=== PATIENT | male | born 1975 | race Hispanic/Latino ===

== ENCOUNTER 2017-11-05 09:36 | Emergency (ER) | payer OTHER ==
[2017-11-05 10:05] VITALS: RESP 18
[2017-11-05] MEDS ORDERED: Sodium Chloride 0.9% 1,000 ML IV STA (10:16)
--- NOTE | 2017-11-05 11:01 | ED PDOC ---
HPI: General Adult Time Seen by Provider: 11/05/17 09:47 Chief Complaint (Nursing): Chest Pain Chief Complaint (Provider): dizziness, joint pains History Per: Patient History/Exam Limitations: no limitations Onset/Duration Of Symptoms: Days (2 weeks), Gradual Current Symptoms Are (Timing): Still Present Severity: Severe Recently: Hospitalized Additional Complaint(s): 42yo male history significant for reported tropical disease he developed on return from [place] (one week trip) approximately 2 weeks ago, was hospitalized at [facility] [facility] for one week due to thrombocytopenia, states tests for Dengue and other tropical diseases were negative but hes awaiting chikungunya serologies still, notes ongoing joint, back and muscle pains, this morning on his way to work became dizzy with pain in back and legs and couldnt make it to work, EMS summoned and brought to ED. States has had frequent low grade fevers, malaise, denies melena, vomiting or hematemesis, syncope, headache or new bruising. Admits to 20-30lb weight loss over last few weeks, loose stools and fatigue. PMD [facility] Past Medical History Reviewed: Historical Data, Nursing Documentation, Vital Signs Vital Signs: Last Vital Signs Temp 98.3 F 11/05/17 12:39 Pulse 76 11/05/17 12:39 Resp 18 11/05/17 12:39 BP 138/81 11/05/17 12:39 Pulse Ox 98 11/05/17 13:55 - Medical History PMH: No Chronic Diseases, Sleep Apnea - Surgical History Surgical History: Tonsillectomy - Living Arrangements Living Arrangements: Other - Social History Current smoker - smoking cessation education provided: No - Home Medications Home Medications: Ambulatory Orders Medication Instructions Recorded traMADol [Ultram] 50 mg PO TID PRN #12 tab 11/05/17 - Allergies Allergies/Adverse Reactions: Allergies Allergy/AdvReac Type Severity Reaction Status Date / Time No Known Allergies Allergy Verified 11/05/17 09:47 Review of Systems Constitutional: Positive for: Fever, Chills, Sweats, Weakness, Malaise, Weight loss Eyes: Negative for: Eyelid Inflammation ENT: Negative for: Throat Pain Cardiovascular: Positive for: Palpitations. Negative for: Chest Pain Respiratory: Positive for: Shortness of Breath (exertional) Gastrointestinal: Positive for: Diarrhea. Negative for: Abdominal Pain Genitourinary Male: Negative for: Dysuria, Hematuria Musculoskeletal: Positive for: Shoulder Pain, Arm Pain, Back Pain, Hand Pain, Leg Pain, Foot Pain, Other (+arthralgias and myalgias). Negative for: Neck Pain Skin: Positive for: Bruising. Negative for: Rash, Lesions Neurological: Positive for: Weakness, Dizziness. Negative for: Seizures, Altered Mental Status Psych: Negative for: Depression Physical Exam - Reviewed Nursing Documentation Reviewed: Yes Vital Signs Reviewed: Yes - Physical Exam Appears: Positive for: Well, Non-toxic, No Acute Distress Head Exam: Positive for: ATRAUMATIC, NORMAL INSPECTION, NORMOCEPHALIC Skin: Positive for: Warm (+scattered ecchymosis old IV sites), Diaphoresis, Pallor. Negative for: Normal Color, Jaundice, Mottled Eye Exam: Positive for: EOMI, Normal appearance, PERRL ENT: Positive for: Normal ENT Inspection Neck: Positive for: Normal, Painless ROM Cardiovascular/Chest: Positive for: Regular Rate, Rhythm Respiratory: Positive for: CNT, Normal Breath Sounds Gastrointestinal/Abdominal: Positive for: Normal Exam, Soft. Negative for: Tenderness Back: Positive for: Normal Inspection Extremity: Positive for: Normal ROM. Negative for: Deformity, Swelling Neurologic/Psych: Positive for: Alert, landscape laborer II-XII (intact), Oriented. Negative for: Motor/Sensory Deficits - Laboratory Results Result Diagrams: 11/05/17 11:23 11/05/17 11:23 - ECG O2 Sat by Pulse Oximetry: 98 Medical Decision Making Medical Decision Making: workup for progression of tropical illness initiated labs reviewed, reveal moderate anemia hgb 9.5 with thrombocytopenia plts 31 mildly elevated lactate chem otherwise clinically unremarkable d/w Dr Harrington hematology who saw patient at [facility], hes ok with Hgb and platelet values as they are improving. He was seen by ID there also per Dr Harrington and cleared for DC. No Abx. Recommends sending LDH and Retic count, will see as an outpatient this week. Orthostatics performed without evidence orthostasis s/p IVF 1L NS. Improved clinically, feels better he states and would like to be discharged. Given option for further obs in hospital but he declined. DC to mandatory followup Dr Harrington 2-3 days and indications for return ER discussed. Add tramadol for pain, d/w clinical pharmacist safe in thrombocytopenia Disposition - Clinical Impression Clinical Impression: Viral syndrome, Myalgia, Anemia, Thrombocytopenia - Patient ED Disposition Is Patient to be Admitted: No Counseled Patient/Family Regarding: Studies Performed, Diagnosis, Need For Followup, Rx Given - Disposition Referrals: Arian Harrington MD [Staff Provider] - Disposition: Routine/Home Disposition Time: 13:30 Condition: STABLE Additional Instructions: Avoid trauma, falls or injury. No athletics, climbing or heavy exertion until cleared by research and development chemist. Platelets today were 31, Hemoglobin 9.5 Use tylenol for pain, tramadol for breakthrough pain, avoid NSAID (motrin/advil/ alleve) use. Drink plenty of fluids. Return to ER for any worse symptoms, bleeding, weakness, persistent fever, or any concern. Prescriptions: traMADol [Ultram] 50 mg PO TID PRN #12 tab PRN Reason: Pain, Moderate (4-7) Instructions: Muscle and Bone Pain (DC), Bleeding Precautions Forms: [facility] ([place])
[2017-11-05 11:03] LABS: VENOUS BLOOD GAS BASE EXCESS -1.3 mmol/L (0.0-2.0); VENOUS BLOOD GAS PCO2 34 mmHg (40-60); VENOUS BLOOD GAS PO2 32 mm/Hg (30-55); VENOUS BLOOD PH 7.43 (7.32-7.43)
[2017-11-05 11:33] LABS: INR 1.1; PROTHROMBIN TIME 12.6 Seconds (9.8-13.1)
[2017-11-05 11:36] LABS: PARTIAL THROMBOPLASTIN TIME 25.4 Seconds (25.6-37.1)
[2017-11-05 11:42] LABS: BASO % 0.8 % (0.0-2.0); EOS # 0.1 K/uL (0.0-0.7); EOS % 1.1 % (0.0-4.0); HEMOGLOBIN 9.5 g/dL (12.0-18.0); LYMPH % 46.9 % (20.0-40.0); MEAN CELL VOLUME 88.6 fl (80.0-94.0); MEAN CORPUSCULAR HEMOGLOBIN 31.3 pg (27.0-31.0); MEAN CORPUSCULAR HGB CONC 35.3 g/dL (33.0-37.0); MEAN PLATELET VOLUME 7.6 fl (7.2-11.7); MONO # 1.3 K/uL (0.0-0.8); MONO % 20.7 % (0.0-10.0); NEUT # 1.9 K/uL (1.8-7.0); NEUT % 30.5 % (50.0-75.0); NRBC % 0.9 % (0.0-0.0); RBC 3.04 Mil/uL (4.40-5.90); RED CELL DISTRIBUTION WIDTH 13.6 % (11.5-14.5); WHITE BLOOD COUNT 6.3 K/uL (4.8-10.8)
[2017-11-05 11:46] LABS: PLATELET COUNT 31 K/uL (130-400)
[2017-11-05 11:48] LABS: ALB/GLOB RATIO 1.3 (1.0-2.1); ALBUMIN 4.1 g/dL (3.5-5.0); ALT/SGPT 57 U/L (21-72); AST/SGOT 128 U/L (17-59); BLOOD UREA NITROGEN 16 mg/dl (9-20); CALCIUM 9.7 mg/dL (8.4-10.2); GFR AFRICAN-AMERICAN > 60; GFR NON-AFRICAN AMERICAN > 60
[2017-11-05 12:25] LABS: URINE BILIRUBIN NEGATIVE (NEGATIVE); URINE BLOOD SMALL (NEGATIVE); URINE CLARITY SLIGHTY-CLOUDY (Clear); URINE COLOR YELLOW (YELLOW); URINE GLUCOSE (UA) NEG (Normal); URINE HYALINE CAST >20 /hpf (0-2); URINE LEUKOCYTE ESTERASE NEG Leu/uL (Negative); URINE PROTEIN NEGATIVE (NEGATIVE); URINE UROBILINOGEN 0.2-1.0 mg/dL (0.2-1.0)
[2017-11-05 12:40] VITALS: BP 138/81; PULSE 76; TEMP 98.3
[2017-11-05 12:43] LABS: BANDS 5 % (0-2); EOSINOPHIL 2 % (0-7); LYMPHOCYTE 50 % (20-50); METAMYELOCYTE 3 % (0-0); MONOCYTE 19 % (0-10); MYELOCYTE 1 % (0-0); NEUTROPHIL 15 % (42-75); NUCLEATED RED BLOOD CELL 7 % (0-0); PLATELET ESTIMATE DECREASED (NORMAL); REACTIVE LYMPHOCYTES 5 % (0-0); TOTAL CELLS COUNTED 100
[2017-11-05 12:44] LABS: HYPOCHROMIC SLIGHT; POLYCHROMIC SLIGHT
[2017-11-05 12:45] LABS: TOXIC GRANULATION PRESENT
[2017-11-05 13:11] LABS: IRON 107 ug/dL (49-181)
[2017-11-05 13:20] LABS: % IRON SATURATION 45 % (20-55); TOTAL IRON BINDING CAPACITY 239 ug/dL (250-450)
[2017-11-05 13:50] VITALS: O2SAT 98
--- NOTE | 2017-11-05 14:17 | RAD ---
Date of service: 11/05/2017 HISTORY: SOB, hx tropical travel, myalgias COMPARISON: No prior. TECHNIQUE: Chest PA and lateral FINDINGS: LUNGS: No active pulmonary disease. PLEURA: No significant pleural effusion identified. No pneumothorax apparent. CARDIOVASCULAR: Normal. OSSEOUS STRUCTURES: No significant abnormalities. VISUALIZED UPPER ABDOMEN: Mildly elevated right hemidiaphragm of uncertain origin. OTHER FINDINGS: None. IMPRESSION: No acute infiltrate or cardiovascular disease appreciable. Mildly liver hemidiaphragm of uncertain origin.
== END 2017-11-05 14:15 | disposition home or self-care (01) ==
LOC: H.ER 09:36
DX: B34.9 Viral infection, unspecified (principal); D64.9 Anemia, unspecified
CPT/HCPCS: 71046; 80053; 81003; 82550; 82728; 82803; 83540; 83550; 83615; 83735; 84100; 84484; 85025; 85044; 85610; 85651; 85730; 87040; 99285; J7030